=== PATIENT | female | born 1950 | race Caucasian/White ===

== ENCOUNTER 2019-03-05 09:57 | Observation (INO) ==
--- NOTE | 2019-03-05 11:09 | Emergency Department Note ---
Disposition Clinical Impression: Acute renal insufficiency UTI (urinary tract infection) Qualifiers: Urinary tract infection type: site unspecified Hematuria presence: without hematuria Qualified Code(s): N39.0 - Urinary tract infection, site not specified Syncope Qualifiers: Syncope type: unspecified Qualified Code(s): R55 - Syncope and collapse Disposition: Admitted As Inpatient Condition: Undetermined Time of Disposition: 22:25 Syncope HPI - General Chief Complaint: ED Syncope Stated Complaint: syncopal episode Time Seen by Provider: 03/05/19 10:34 Source: patient Limitations: no limitations - History of Present Illness HPI Narrative: 68-year-old female past medical history of stage III chronic kidney disease, hypertension, diabetes, asthma, congestive heart failure, 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 Thea agudelo states that today while folding laundry she felt lightheaded as she was bending over and fell forward onto a pile of laundry. Patient states she was able to get herself back up, she denies trauma during this event, patient walked down the stairs and told her son happened. Patient's son at bedside states that patient sat in her recliner and began drinking coffee when she "melted" out of the chair falling onto the floor and then experienced 3 minutes of generalized convulsions before slowly regaining consciousness after a groggy episode. Patient's son states that he is only seen this once before many years ago when he was a child that his mother has no known seizure history. Patient states that she has had presyncopal and syncopal episodes in the past as been worked up at this facility seeing Dr. Moore neurology and has had negative workup for seizure but has been diagnosed with orthostatic intolerance. Patient currently states that she feels "tight" in her facial muscles and that she has some worsening of her vision then she normally experiences at baseline. Patient is otherwise symptomatic and has no concerns or complaints at this time. - Related Data Home Medications Medication Instructions Recorded Confirmed Aspirin 81 mg PO DAILY 03/09/16 03/05/19 Carvedilol 12.5 mg PO BID 03/09/16 03/05/19 Citalopram [CeleXA] 20 mg PO DAILY 03/09/16 03/05/19 Insulin Glargine [Lantus] 68 - 70 unit SQ DAILY 03/09/16 03/05/19 Isosorbide MONOnitrate (24 HR) 30 mg PO DAILY 03/09/16 03/05/19 [Imdur] Albuterol Sulfate [Albuterol 1 puff IH Q4H PRN 08/02/16 03/05/19 Inhaler] Budesonide/Formoterol 80/4.5 1 puff IH BID 08/02/16 03/05/19 [Symbicort 80/4.5] Lovastatin 40 mg PO DAILY 08/02/16 08/02/16 Omeprazole Magnesium 20 mg PO DAILY 08/02/16 03/05/19 Tiotropium [Spiriva] 18 mcg IH DAILY 08/02/16 03/05/19 Allergies Allergy/AdvReac Type Severity Reaction Status Date / Time levofloxacin [From Levaquin] Allergy Hives Verified 03/05/19 10:03 lisinopril Allergy See Verified 03/05/19 10:03 Comments Penicillins Allergy See Verified 03/05/19 10:03 Comments Review of Systems: *See History of Present Illness for more detail Constitutional: Denies: fever, chills HEENT: Denies dysphagia/odynophagia, lymphadenopathy Cardiovascular: Denies: chest pain Respiratory: Denies: dyspnea, cough, hemoptysis Gastrointestinal: Denies: abdominal pain, nausea, vomiting, diarrhea, constipation, hematemesis, melena, hematochezia Genitourinary: Denies: hematuria Musculoskeletal: Denies: back pain, neck pain Integumentary: Denies: rash Neurological: Patient admits to "tightness" in her facial muscles as well as blurring of vision worse than her baseline. Denies: headache, weakness, lightheadedness/dizziness, numbness, paresthesias, difficulty with ambulation. Endocrine: Denies: fatigue Hematological/Lymphatic: Denies: easy bleeding, easy bruising Past Medical History - Past Medical History Medical history: Reports: asthma, CHF, diabetes, renal disease Surgical history: Reports: breast surgery, cataract, cholecystectomy, pacemaker Psychiatric history: Reports: no psych history PLATFORM STAPLER history: Reports: no PLATFORM STAPLER history - Social History Smoking Status: Never smoker Smokeless Tobacco Status: No Alcohol use: Reports: none Drug use: Reports: none Physical Exam NIH score is 0. Constitutional: No acute distress, [id number], engaged to conversation, speech is fluid, answers questions appropriately Neuro: GCS 15, CN II-XII are grossly intact, reflexes 2/4 in bilateral upper and lower extremities, strength 5/5 in bilateral upper and lower extremities Head: Atraumatic, normocephalic Eyes: Pupils equal, round and reactive to light, external ocular muscles intact, no scleral icterus, no conjunctival injection, no nystagmus. Mouth: Mucous membranes are moist, oropharynx is without edema, erythema, or exudate. No tongue swelling, lip swelling, perioral cyanosis, drooling, or trismus. Neck: Trachea midline without deviation. Anterior neck is supple without swelling, no lymphadenopathy or thyromegaly noted. Chest: Symmetric chest wall rise Heart: Cardiac rhythm and rate are regular with S1 and S2 , no S3 or S4 appreciated, no murmurs, rubs, or clicks. Lungs: Lungs are clear to auscultation bilaterally, without accessory muscle use or prolonged expiratory phase. No wheezes or stridor appreciated. Abdomen: Abdomen is flat, soft to palpation, normal bowel sounds, no evidence of bruising, surgical incisions, or abnormal mass. No abdominal bruit auscultated. Non-distended, non-rigid, no organomegaly, no ascites appreciated. No pulsatile mass, no tenderness or guarding to palpation, no rebound Extremities: No pedal edema, joint swelling or erythema. Pulses/motor/sensory intact in all 4 extremities. Psychiatric exam: Patient displays a normal affect and mood for the environment. No overt signs of hallucination. Integumentary: warm, dry, intact, normal color. No rash, cyanosis, diaphoresis, erythema, or pallor - General Limitations: no limitations General appearance: alert, in no apparent distress Course Course Narrative: CBC, CMP, TSH, troponin CT scan of the head, chest x-ray Urinalysis Vital Signs Temperature 98.3 F 03/05/19 10:01 Pulse Rate 78 03/05/19 10:01 Respiratory Rate 16 03/05/19 10:01 Blood Pressure 122/73 03/05/19 10:01 O2 Sat by Pulse Oximetry 98 03/05/19 10:01 Temperature 98.9 F 03/05/19 19:12 Pulse Rate 91 03/05/19 19:12 Respiratory Rate 16 03/05/19 20:19 Blood Pressure 127/70 03/05/19 19:12 O2 Sat by Pulse Oximetry 95 03/05/19 20:19 Oxygen Delivery Oxygen Delivery Room Air Syncope - MDM Narrative Medical decision making narrative: Laboratory results is significant for acute UTI 1 g of Rocephin given ED Imaging and laboratory results otherwise unremarkable Patiently admitted to hospitalist medicine service for further evaluation and management of syncopal episode with possible seizure activity. Patient and family at bedside verbalize their understanding and agreement with this plan. - Lab Data Lab results reviewed: Yes I reviewed the patient's lab results. Result diagrams: 03/05/19 11:38 03/05/19 11:38 Lab Results 03/05/19 03/05/19 03/05/19 Range/Units 10:08 11:08 11:38 WBC 14.0 H (4.3-11.1) K/mcL RBC 4.74 (3.82-4.97) M/mcL Hgb 11.6 (11.5-15.4) g/dL Hct 37.5 (35.3-44.9) % MCV 79.1 L (83.0-100.0) fL MCH 24.5 L (28.0-33.3) pg MCHC 30.9 L (31.6-35.5) g/dL RDW 14.4 (11.5-14.5) % Plt Count 289 (140-400) K/mcL MPV 11.1 (9.4-12.4) fL Immature Gran % 0.6 (0-4) % Seg Neutrophils % 71.0 % Lymphocytes % 19.1 % Monocytes % 6.6 % Eosinophils % 2.5 % Basophils % 0.2 % Neutrophils # 10.0 H (1.6-8.9) K/mcL Lymphocytes # 2.7 (0.6-4.6) K/mcL Monocytes # 0.9 (0.0-1.3) K/mcL Eosinophils # 0.4 (0.0-0.6) K/mcL Basophils # 0.0 (0.0-0.2) K/mcL Sodium (136-145) mEq/L Potassium (3.5-5.1) mEq/L Chloride (98-107) mEq/L Carbon Dioxide (23-29) mEq/L BUN (8-23) mg/dL Creatinine (0.60-1.20) mg/dL Est GFR ( Amer) (> 60) Est GFR (Non-Af Amer) (> 60) BUN/Creatinine Ratio (6-26) Glucose (70-105) mg/dL POC Glucose 179 H (70-99) mg/dL Calculated Osmolality (280-300) Calcium (8.6-10.3) mg/dL Total Bilirubin (0.3-1.0) mg/dL AST (13-39) Units/L ALT (7-52) Units/L Alkaline Phosphatase (34-104) Units/L Troponin I (< 0.04) ng/mL Serum Total Protein (6.4-8.9) g/dL Albumin (3.5-5.7) g/dL Globulin (2.4-3.5) g/dL Albumin/Globulin Ratio (1.1-2.2) TSH (0.340-5.600) mcIU/mL Urine Color Yellow (Yellow) Urine Clarity Slightly Hazy (Clear) Urine pH 6.5 (5.0-8.0) pH Units Ur Specific [place] < 1.005 L (1.010-1.025) Urine Protein Negative (Neg-Trace) mg/dL Urine Glucose (UA) Normal (Normal) mg/dL Urine Ketones Negative (Negative) mg/dL Urine Blood Negative (Negative) Urine Nitrite Negative (Negative) Urine Bilirubin Negative (Negative) Urine Urobilinogen Normal (Normal) mg/dL Ur Leukocyte Esterase Moderate H (Negative) Urine Microscopic RBC 0-3 (0-3) per hpf Urine Microscopic WBC 30-50 H (0-3) per hpf Ur Squamous Epith Cells Many H (None-Few) per lpf Urine Bacteria Moderate H (None-Few) per hpf Hyaline Casts None Seen (None-Few) per lpf Ur Culture Indicated? YES A (NO) 03/05/19 Range/Units 11:38 WBC (4.3-11.1) K/mcL RBC (3.82-4.97) M/mcL Hgb (11.5-15.4) g/dL Hct (35.3-44.9) % MCV (83.0-100.0) fL MCH (28.0-33.3) pg MCHC (31.6-35.5) g/dL RDW (11.5-14.5) % Plt Count (140-400) K/mcL MPV (9.4-12.4) fL Immature Gran % (0-4) % Seg Neutrophils % % Lymphocytes % % Monocytes % % Eosinophils % % Basophils % % Neutrophils # (1.6-8.9) K/mcL Lymphocytes # (0.6-4.6) K/mcL Monocytes # (0.0-1.3) K/mcL Eosinophils # (0.0-0.6) K/mcL Basophils # (0.0-0.2) K/mcL Sodium 134 L (136-145) mEq/L Potassium 4.5 (3.5-5.1) mEq/L Chloride 99 (98-107) mEq/L Carbon Dioxide 26 (23-29) mEq/L BUN 24 H (8-23) mg/dL Creatinine 1.36 H (0.60-1.20) mg/dL Est GFR ( Amer) 47 L (> 60) Est GFR (Non-Af Amer) 39 L (> 60) BUN/Creatinine Ratio 18 (6-26) Glucose 215 H (70-105) mg/dL POC Glucose (70-99) mg/dL Calculated Osmolality 289 (280-300) Calcium 9.3 (8.6-10.3) mg/dL Total Bilirubin 0.4 (0.3-1.0) mg/dL AST 17 (13-39) Units/L ALT 21 (7-52) Units/L Alkaline Phosphatase 141 H (34-104) Units/L Troponin I < 0.03 (< 0.04) ng/mL Serum Total Protein 7.0 (6.4-8.9) g/dL Albumin 3.8 (3.5-5.7) g/dL Globulin 3.2 (2.4-3.5) g/dL Albumin/Globulin Ratio 1.2 (1.1-2.2) TSH 2.950 (0.340-5.600) mcIU/mL Urine Color (Yellow) Urine Clarity (Clear) Urine pH (5.0-8.0) pH Units Ur Specific [place] (1.010-1.025) Urine Protein (Neg-Trace) mg/dL Urine Glucose (UA) (Normal) mg/dL Urine Ketones (Negative) mg/dL Urine Blood (Negative) Urine Nitrite (Negative) Urine Bilirubin (Negative) Urine Urobilinogen (Normal) mg/dL Ur Leukocyte Esterase (Negative) Urine Microscopic RBC (0-3) per hpf Urine Microscopic WBC (0-3) per hpf Ur Squamous Epith Cells (None-Few) per lpf Urine Bacteria (None-Few) per hpf Hyaline Casts (None-Few) per lpf Ur Culture Indicated? (NO) - Radiology Data Radiology results reviewed: Yes I reviewed the patient's radiology results. Head CT 03/05/19 10:58 IMPRESSION: No hemorrhage or mass identified Mild periventricular white matter disease, likely due to small-vessel ischemic change, similar to prior D/ / Juanpablo Méndez MD / Juanpablo Méndez MD Interpreting Provider: Juanpablo Méndez MD Chest X-Ray 03/05/19 11:00 IMPRESSION: No acute cardiopulmonary process. D/ / 03/05/2019 11:34:39 Stefan Delgado MD / Nori Xiong Interpreting Provider: Stefan Delgado MD Foot X-Ray 03/05/19 16:36 IMPRESSION: No acute findings D/ / Macrina De Souza MD / Macrina De Souza MD Interpreting Provider: Macrina De Souza MD Attestation Statement - Attestation Attestation: I, Juan Luis Wahl, examined this patient and my medical decision-making was reviewed with the CR[facility] PULLER/PA/Advanced Practice Nurse/Resident Physician. I agree with the documented findings, disposition and treatment plan as described except to the extent set forth below. 68-year-old female presents emergency Department with concerns of a syncopal episode. Patient and son state that she was sitting have a conversation when she suddenly became pale and syncopized. She has a history of this in the past but this is much more severe. Etiology in the past was considered to be dehydration. Patient denies recent trauma, nausea, vomiting, diarrhea, change in her diet. Patient is awake alert during the examination the emergency department. She denied chest pain or palpitations prior to the syncopal episode. She was sitting in a chair and did not sustain trauma. No drug evaluation showed acute renal insufficiency, possible urinary tract infection. She was started on ceftriaxone emergency department. She will be admitted to hospitalist for further care and evaluation of her syncopal episode.
[2019-03-05 11:25] LABS: Bilirubin,Urine Negative (Negative); Blood,Urine Negative (Negative); Color,Urine Yellow (Yellow); Glucose,Urine (UA) Normal (Normal); Ketones,Urine Negative (Negative); Leukocyte Esterase,Urine Moderate (Negative); Nitrite,Urine Negative (Negative); PH,Urine 6.5 pH Units (5.0-8.0); Protein,Urine Negative (Neg-Trace); Specific Gravity,Urine < 1.005 (1.010-1.025); Urobilinogen,Urine Normal (Normal)
[2019-03-05 11:30] LABS: Bacteria,Urine Moderate per hpf (None-Few); Hyaline Casts,Urine None Seen per lpf (None-Few); RBC,Urine 0-3 per hpf (0-3); Squamous Epithelial Cell,Urine Many per lpf (None-Few); WBC,Urine 30-50 per hpf (0-3)
[2019-03-05 11:50] LABS: Clarity,Urine Slightly Hazy (Clear)
[2019-03-05 12:02] LABS: Basophils % 0.2 %; Eosinophils # 0.4 K/mcL (0.0-0.6); Eosinophils % 2.5 %; Hematocrit 37.5 % (35.3-44.9); Hemoglobin 11.6 g/dL (11.5-15.4); Immature Granulocytes % 0.6 % (0-4); Lymphocytes # 2.7 K/mcL (0.6-4.6); Lymphocytes % 19.1 %; Mean Corpuscular HGB Conc 30.9 g/dL (31.6-35.5); Mean Corpuscular Hemoglobin 24.5 pg (28.0-33.3); Mean Corpuscular Volume 79.1 fL (83.0-100.0); Mean Platelet Volume 11.1 fL (9.4-12.4); Monocytes # 0.9 K/mcL (0.0-1.3); Monocytes % 6.6 %; Platelet Count 289 K/mcL (140-400); Red Blood Count 4.74 M/mcL (3.82-4.97); Red Cell Distribution Width 14.4 % (11.5-14.5)
[2019-03-05 12:10] LABS: Alanine Aminotransferase 21 Units/L (7-52); Albumin 3.8 g/dL (3.5-5.7); Albumin/Globulin Ratio 1.2 (1.1-2.2); Alkaline Phosphatase 141 Units/L (34-104); Aspartate Amino Transferase 17 Units/L (13-39); BUN/Creatinine Ratio 18 (6-26); Bilirubin,Total 0.4 mg/dL (0.3-1.0); Blood Urea Nitrogen 24 mg/dL (8-23); Calcium 9.3 mg/dL (8.6-10.3); Carbon Dioxide 26 mEq/L (23-29); Chloride 99 mEq/L (98-107); Globulin 3.2 g/dL (2.4-3.5); Glucose 215 mg/dL (70-105); Osmolality,Calculated 289 (280-300); Potassium 4.5 mEq/L (3.5-5.1); Sodium 134 mEq/L (136-145); eGFR For Non-African Americans 39 (> 60)
[2019-03-05 12:11] LABS: Troponin I < 0.03 ng/mL (< 0.04)
[2019-03-05] MEDS ORDERED: cefTRIAXone 1,000 MG in 0.9 % Sodium Chloride Mini Bag 100 ML IVPB ONE (12:52)
--- NOTE | 2019-03-05 16:30 | Internal Med History&Physical ---
Date of Encounter: 03/05/19 Time of Encounter: 16:00 Internal Medicine - H&P: HPI Chief complaint: Syncopal/seizure like activity Admitted From: Home Plans for Post Hospital Care: Home History of present illness: Patient is a 68-year-old female with past medical history significant for pacemaker placement in 2013, HFrEF, CKD stage III, insulin-dependent diabetes and COPD who presents due to syncopal/seizure like activities. She reports after getting up this morning she bent over and then lost her balance and fell over. Later that morning approximately one hour later, son reports that while in a chair her head fell back and eyes rolled to the back of her head with jerking-like movements of her face. Son reports that she was unresponsive for seconds and when she came to he decided to bring her to the ER. Patient reports similar episodes in the past apparently has been worked up by neurology (Dr. Moore) and diagnosed with orthostatic intolerance. In the ER, patient was found to have a CT of the head negative for acute findings. Patient was noted to have irregular paced ventricular rhythm. She will be admitted to the observation unit for further evaluation. Past Med Surg Social Fam HX - Past Medical History Medical history: asthma, CHF, diabetes, renal disease Additional medical history: angina, ANterior ischemic optic neuropathy, colonoscopy Psychiatric history: no psych history - Past Surgical History Surgical History: breast surgery, cataract, cholecystectomy, pacemaker Additional surgical history: cardiac cath, breast biopsy - Social History Smoking Status: Never smoker Smokeless Tobacco Status: No Alcohol use: none Drug use: none - Family History Mother Hx Family Cardiac Disorders: Yes Hx Family Cancer: Yes Father Hx Family Cardiac Disorders: Yes Hx Family Respiratory Disorders: Yes Internal Medicine - H&P: Meds Aspirin 81 mg PO DAILY 03/09/16 [History] Carvedilol 12.5 mg PO BID 03/09/16 [History] Citalopram [CeleXA] 20 mg PO DAILY 03/09/16 [History] Insulin Glargine [Lantus] 68 - 70 unit SQ DAILY 03/09/16 [History] Isosorbide MONOnitrate (24 HR) [Imdur] 30 mg PO DAILY 03/09/16 [History] Albuterol Sulfate [Albuterol Inhaler] 1 puff IH Q4H PRN 08/02/16 [History] Budesonide/Formoterol 80/4.5 [Symbicort 80/4.5] 1 puff IH BID 08/02/16 [History] Lovastatin 40 mg PO DAILY 08/02/16 [History] Omeprazole Magnesium 20 mg PO DAILY 08/02/16 [History] Tiotropium [Spiriva] 18 mcg IH DAILY 08/02/16 [History] Allergy/AdvReac Type Severity Reaction Status Date / Time levofloxacin [From Levaquin] Allergy Hives Verified 03/05/19 10:03 lisinopril Allergy See Verified 03/05/19 10:03 Comments Penicillins Allergy See Verified 03/05/19 10:03 Comments All Systems PM: A 10-system review of systems was performed and is negative for pertinent findings except as documented above in the HPI. - Constitutional Vitals: Temp Pulse Resp BP Pulse Ox 98.3 F 83 16 146/81 95 03/05/19 15:50 03/05/19 15:50 03/05/19 15:50 03/05/19 15:50 03/05/19 15:50 Exam: General appearance: Present: A&O X 3, no acute distress - Head Head exam: Present: normocephalic - Eye Eye exam: Present: normal appearance - ENT ENT exam: Present: mucous membranes moist - Respiratory Respiratory exam: Present: CTAB. Absent: accessory muscle use, rales, rhonchi, wheezes - Cardiovascular Cardiovascular exam: Present: RRR, +S1, +S2. Absent: diastolic murmur, gallop, rubs, systolic murmur - GI/Abdominal GI/Abdominal exam: Present: normal bowel sounds, soft, no peritoneal signs. Absent: distended, tenderness - Extremities Exam Extremities exam: Absent: pedal edema - Neurological Exam Neurological exam: Present: alert, oriented X3, no focal deficits. Absent: altered - Psychiatric Psychiatric exam: -normal mood Skin exam: -normal color Internal Med - H&P Results - Labs CBC & Chem 7: 03/05/19 11:38 03/05/19 11:38 Labs: Short CBC 03/05/19 Range/Units 11:38 WBC 14.0 H (4.3-11.1) K/mcL Hgb 11.6 (11.5-15.4) g/dL Hct 37.5 (35.3-44.9) % Plt Count 289 (140-400) K/mcL Neutrophils # 10.0 H (1.6-8.9) K/mcL BMP 03/05/19 11:38 Sodium 134 L Potassium 4.5 Chloride 99 Carbon Dioxide 26 BUN 24 H Creatinine 1.36 H Glucose 215 H Calcium 9.3 Cardiac Enzymes 03/05/19 Range/Units 11:38 Troponin I < 0.03 (< 0.04) ng/mL Liver Function 03/05/19 Range/Units 11:38 Total Bilirubin 0.4 (0.3-1.0) mg/dL AST 17 (13-39) Units/L ALT 21 (7-52) Units/L Alkaline Phosphatase 141 H (34-104) Units/L Albumin 3.8 (3.5-5.7) g/dL Urine 03/05/19 Range/Units 11:08 Urine Color Yellow (Yellow) Urine Clarity Slightly Hazy (Clear) Urine pH 6.5 (5.0-8.0) pH Units Ur Specific [place] < 1.005 L (1.010-1.025) Urine Protein Negative (Neg-Trace) mg/dL Urine Glucose (UA) Normal (Normal) mg/dL - Impressions ITS Impressions Head CT 03/05/19 10:58 IMPRESSION: No hemorrhage or mass identified Mild periventricular white matter disease, likely due to small-vessel ischemic change, similar to prior D/ / Juanpablo Méndez MD / Juanpablo Méndez MD Interpreting Provider: Juanpablo Méndez MD Chest X-Ray 03/05/19 11:00 IMPRESSION: No acute cardiopulmonary process. D/ / 03/05/2019 11:34:39 Stefan Delgado MD / Nori Xiong Interpreting Provider: Stefan Delgado MD - Assessment and Plan (1) Pre-syncope Current Visit: No Status: Acute Assessment and plan: Patient presents to nursing/seizure-like activities CT of the head negative for acute findings; will consult neurology for evaluation EKG did reveal abnormal pes particular rhythm; will consult cardiology for evaluation Echocardiogram and carotid Dopplers pending and will monitor on telemetry (2) Foot pain, left Current Visit: Yes Status: Acute Assessment and plan: She with good range of motion 5 out 5 strength on left/foot ankle exam Patient with point tenderness on the lateral aspect of the dorsal foot Will order x-ray for further evaluation (3) CHF (congestive heart failure) Current Visit: No Status: Chronic Assessment and plan: Patient with a previous documented history of heart failure with reduced ejection fraction Patient euvolemic Echocardiogram pending as above Qualifiers: Heart failure chronicity: unspecified Qualified Code(s): I50.20 - Unspecified systolic (congestive) heart failure (4) CKD (chronic kidney disease) stage 3, GFR 30-59 ml/min Current Visit: No Status: Chronic Assessment and plan: Creatinine 1.36 which is close to baseline Continue to monitor (5) Diabetes mellitus Current Visit: No Status: Chronic Assessment and plan: Continue home insulin Qualifiers: Qualified Code(s): E11.9 - Type 2 diabetes mellitus without complications; Z79.4 - care home (current) use of insulin (6) Hypertension Current Visit: No Status: Chronic Assessment and plan: Continue home dose of antihypertensive medication Qualifiers: Hypertension type: unspecified Qualified Code(s): I10 - Essential (primary) hypertension (7) DVT prophylaxis Current Visit: No Status: Acute Assessment and plan: Subcutaneous heparin - Time Spent With Patient Total time spent is greater than 50% in coordination of care (as documented) at patient's floor/unit and/or counseling patient:
[2019-03-05] MEDS ORDERED: Naloxone 0.4 MG/ML INJ IVP PRN (16:33)
[2019-03-05] MEDS: Budesonide/Formoterol 80/4.5 MDI IH SCH (20:19)
[2019-03-05] MEDS: *HR* Heparin 5,000 UNIT/ML VIAL SQ SCH (21:05)
[2019-03-06 03:38] LABS: Basophils % 0.3 %; Eosinophils # 0.4 K/mcL (0.0-0.6); Hematocrit 40.1 % (35.3-44.9); Hemoglobin 12.4 g/dL (11.5-15.4); Immature Granulocytes % 0.3 % (0-4); Lymphocytes # 4.5 K/mcL (0.6-4.6); Lymphocytes % 30.6 %; Mean Corpuscular HGB Conc 30.9 g/dL (31.6-35.5); Mean Corpuscular Hemoglobin 24.5 pg (28.0-33.3); Mean Corpuscular Volume 79.2 fL (83.0-100.0); Mean Platelet Volume 11.3 fL (9.4-12.4); Monocytes # 1.1 K/mcL (0.0-1.3); Monocytes % 7.3 %; Neutrophils # 8.5 K/mcL (1.6-8.9); Platelet Count 292 K/mcL (140-400); Red Blood Count 5.06 M/mcL (3.82-4.97); Red Cell Distribution Width 14.6 % (11.5-14.5); Segmented Neutrophils % 58.5 %
[2019-03-06 03:56] LABS: Calcium 9.3 mg/dL (8.6-10.3); Potassium 4.2 mEq/L (3.5-5.1)
[2019-03-06] MEDS: *HR* Heparin 5,000 UNIT/ML VIAL SQ SCH (05:34)
[2019-03-06] MEDS: Budesonide/Formoterol 80/4.5 MDI IH SCH (07:41)
[2019-03-06] MEDS ORDERED: Isosorbide MONOnitrate (24 HR) 30 MG TAB.ER.24H PO SCH (09:00)
[2019-03-06] MEDS ORDERED: Tiotropium 18 MCG inhalation IH SCH (09:00)
[2019-03-06] MEDS ORDERED: Insulin DETEMIR 100 UNIT/ML X5UNITS SQ SCH (09:00)
[2019-03-06] MEDS ORDERED: Aspirin 81 MG TAB.CHEW PO SCH (09:00)
--- NOTE | 2019-03-06 10:57 | Neurology - Consult Note ---
<Jovany Whitman J - Last Filed: 03/06/19 17:20> Date of Encounter: 03/06/19 Time of Encounter: 10:57 Assessment and Plan (1) Syncope Current Visit: Yes Status: Chronic Neuro consulted to evaluate for syncope and seizure-like activity Patient has a known history of vasovagal syncope with positive tilt table testing previously She reports attempting to stand yesterday and following over due to loss of balance. Denies any head or neck trauma Approximately 20 minutes later while drinking coffee began to feel very weak and reports seeing bright lights and then sudden loss of consciousness Duration of syncopal event lasted approximately 3 minutes; during this time experienced ""jerking of head and bilateral hands". Denies tongue biting or urinary incontinence. Denies postictal phase. No return of syncope or seizure- like activity since admission She reports a similar event 3 years ago occurring during the parade. Again, workup from the prior event did not find any seizure activity but did have a positive tilt table testing showing vasovagal syncope Of note, her UA indicates a UTI with moderate leukocyte esterase and pyuria. She also has mild leukocytosis on CBC. Neurological exam is nonfocal and nonlateralizing. No family present at this time to discuss seizure-like activity. However the patient reports that the "jerking" movement was limited to her head and bilateral hands. Given prior w/u negative for seizure I do not recommend adding AED'S at this time. However, I will get an EEG to evaluate for seizures. C/W PRN Ativan for breakthrough seizures, c/w seizure precautions. Syncope workup pending; this includes carotid duplex scans and echocardiogram. I recommend obtaining orthostatic vital signs as well. Prior workup including tilt table testing positive for vasovagal syncope. Given UTI diagnosis her threshold for a syncopal event is likely lower and I believed that the "jerking" activity is convulsive syncope. Qualifiers: Syncope type: vasovagal syncope Qualified Code(s): R55 - Syncope and collapse (2) Seizure-like activity Current Visit: Yes Status: Acute History of Present Illness Chief complaint: Syncope and concern for seizure-like activity HPI: Ms. Sood is a 68 year old female with a PMH of heart failure, pacemaker, CKD 3, DM, COPD and prior history of syncope approximately 3 years ago. She reports that yesterday while bending over she fell a polyp pillows due to losing her balance. She denies any loss of consciousness just reports that she was unable to retain her balance and "just fell over ". Shortly after this event, approximately 20 minutes later while sitting at the breakfast table having coffee with her son she reports feeling suddenly weak, seeing white spots in her vision and having a full loss of consciousness with her eyes rolling back in her head. She reports that her son noted jerking of her head and bilateral hands. She notes that the jerking did not extend into her arms or legs, she denies any tongue bite, urinary incontinence or postictal phase. In total the syncopal event lasted approximately 2-3 minutes. She has been worked up for sy ncope in the past with a positive tilt table test diagnosing orthostatic hypotension secondary to vasovagal phenomena. a urinary tract infection was found on admission along with leukocytosis. A CT of the head was unremarkable for acute ischemic changes. since admission she has not had any return of syncopal or seizure like activity. Neurology will follow and consult for syncope and seizure-like activity. Past Med Surg Social Fam HX - Past Medical History Medical history: asthma, CHF, diabetes, renal disease Additional medical history: angina, ANterior ischemic optic neuropathy, colonoscopy Psychiatric history: no psych history - Past Surgical History Surgical History: breast surgery, cataract, cholecystectomy, pacemaker Additional surgical history: cardiac cath, breast biopsy - Social History Smoking Status: Never smoker Smokeless Tobacco Status: No Alcohol use: none Drug use: none - Family History Mother Hx Family Cardiac Disorders: Yes Hx Family Cancer: Yes Father Hx Family Cardiac Disorders: Yes Hx Family Respiratory Disorders: Yes Medications and Allergies Aspirin 81 mg PO DAILY 03/09/16 [History] Carvedilol 12.5 mg PO BID 03/09/16 [History] Citalopram [CeleXA] 20 mg PO DAILY 03/09/16 [History] Insulin Glargine [Lantus] 68 - 70 unit SQ DAILY 03/09/16 [History] Isosorbide MONOnitrate (24 HR) [Imdur] 30 mg PO DAILY 03/09/16 [History] Albuterol Sulfate [Albuterol Inhaler] 1 puff IH Q4H PRN 08/02/16 [History] Budesonide/Formoterol 80/4.5 [Symbicort 80/4.5] 1 puff IH BID 08/02/16 [History] Lovastatin 40 mg PO DAILY 08/02/16 [History] Omeprazole Magnesium 20 mg PO DAILY 08/02/16 [History] Tiotropium [Spiriva] 18 mcg IH DAILY 08/02/16 [History] Cephalexin [Keflex] 500 mg PO TID #15 capsule 03/06/19 [Rx] Allergy/AdvReac Type Severity Reaction Status Date / Time levofloxacin [From Levaquin] Allergy Hives Verified 03/05/19 10:03 lisinopril Allergy See Verified 03/05/19 10:03 Comments Penicillins Allergy See Verified 03/05/19 10:03 Comments All Systems: The remainder of the systems were reviewed and are negative Review of Systems: REVIEW OF SYSTEMS GENERAL: Negative for any nausea, vomiting, fevers, chills, or weight loss, fatigue NEUROLOGIC: Negative for any blurry vision, blind spots, double vision, facial asymmetry, dysphagia, dysarthria, hemiparesis, hemisensory deficits, vertigo, ataxia, paralysis, tingling, numbness, unilateral weakness or numbness/tingling Positive-"shaking activity of head and hands " occurred after syncopal event HEENT: Negative for any head trauma, neck trauma, neck stiffness, photophobia, phonophobia, tinnitus CARDIAC: Negative for any chest pain, dyspnea, peripheral edema palpitations Physical Examination - Vital Signs Vital Signs: Initial Vital Signs Temp Pulse Resp BP Pulse Ox 98.3 F 78 16 122/73 98 03/05/19 10:01 03/05/19 10:01 03/05/19 10:01 03/05/19 10:01 03/05/19 10:01 - Exam Exam: Examination: General Examination: *CONSTITUTIONAL: Alert and oriented x3, no acute distress *GENERAL APPEARANCE OF PATIENT appears healthy and well groomed *EYES: pupils equal, round, reactive to light and accommodation, conjunctiva clear without masses or ulcerations, fundi normal. *CARDIOVASCULAR RRR, S1, S2, no peripheral edema, distal temperature normal, dorsalis pedis pulses normal. See vitals Musculoskeletal: *GAIT AND STATION normal, with normal Romberg testing, no abnormalities such as broad base gait or spasticity *ASSESSMENT OF MUSCLE STRENGTH IN THE UPPER AND LOWER EXTREMITIES bilateral deltoid, bicep, tricep, seam hammerer strength, hip flexors ,anterior tibialis, dorsoflexion of the foot 5/5 *MUSCLE TONE IN THE UPPER AND LOWER EXTREMITIES normal. No abnormal movements, fasciculations or atrophy identified. Neurological: *ORIENTATION to person, situation, time and place *RECURRENT AND REMOTE MEMORY intact *ATTENTION AND CONCENTRATION are normal *LANGUAGE FUNCTION no significant aphasia or dysarthia was noted. *FUND OF KNOWLEDGE aware of current events, past history, vocabulary *MENTAL attention span and concentration normal. *CN II optic fundi were normal, no papilledema noted. *CN III,IV, PERRLA extraocular eye movements were full, no nystagmus and no ptosis noted. *CN V shows normal sensation and jaw opens symmetrically. *CN VII shows normal facial movement symmetrically, upper and lower bilaterally. *CN VIII shows no significant hearing loss on exam *CN IX,,X palate elevated symmetrically *CN XI normal strength in the sternocleidomastoid muscles, symmetrical shoulder shrugging. *CN XII tongue protruded in the midline, with normal strength and movement. *SENSORY EXAMINATION light touch intact *REFLEXES: deep tendon reflexes were normal and symmetrical , grade 2/4 diffusely, no pathological reflexes were noted. *CEREBELLAR TESTING normal finger to nose, heel/knee/diego *PAIN LEVEL 0/10 Results - Laboratory Findings CBC and BMP: 03/06/19 02:47 03/06/19 02:47 Abnormal lab findings: Abnormal lab results WBC 14.6 K/mcL (4.3-11.1) H 03/06/19 02:47 RBC 5.06 M/mcL (3.82-4.97) H 03/06/19 02:47 MCV 79.2 fL (83.0-100.0) L 03/06/19 02:47 MCH 24.5 pg (28.0-33.3) L 03/06/19 02:47 MCHC 30.9 g/dL (31.6-35.5) L 03/06/19 02:47 RDW 14.6 % (11.5-14.5) H 03/06/19 02:47 10.0 K/mcL (1.6-8.9) H 03/05/19 11:38 Sodium 135 mEq/L (136-145) L 03/06/19 02:47 BUN 24 mg/dL (8-23) H 03/05/19 11:38 1.40 mg/dL (0.60-1.20) H 03/06/19 02:47 Est GFR ( Amer) 45 (> 60) L 03/06/19 02:47 Est GFR (Non-Af Amer) 38 (> 60) L 03/06/19 02:47 Glucose 196 mg/dL (70-105) H 03/06/19 02:47 POC Glucose 193 mg/dL (70-99) H 03/05/19 20:13 141 Units/L (34-104) H 03/05/19 11:38 Ur Specific [place] < 1.005 (1.010-1.025) L 03/05/19 11:08 Ur Leukocyte Esterase Moderate (Negative) H 03/05/19 11:08 30-50 per hpf (0-3) H 03/05/19 11:08 Ur Squamous Epith Cells Many per lpf (None-Few) H 03/05/19 11:08 Moderate per hpf (None-Few) H 03/05/19 11:08 Ur Culture Indicated? YES (NO) A 03/05/19 11:08 - Diagnostic Findings Additional findings: CT/CT head/brain wo con IMPRESSION: No hemorrhage or mass identified Mild periventricular white matter disease, likely due to small-vessel ischemic change, similar to prior Consult Discharge Plan - Plan Instructions: Cephalexin (By mouth), Urinary Tract Infection in Women (DC), Syncope (DC) Referrals: Mark Harvey, DPM [Partnered Physician] - (We have requestes a follow up appointment with [facility]. The office will call you at home with an appointment date and time. ) Nae Garcia MD [Primary Care Provider] - 03/15/19 10:20 am Prescriptions: Cephalexin [Keflex] 500 mg PO TID #15 capsule <Jagjit Moore - Last Filed: 03/06/19 17:31> Date of Encounter: 03/06/19 Assessment and Plan (1) Syncope Current Visit: Yes Status: Chronic I have personally performed a [id number] assessment of the patient and have reviewed the PA/BUILDING ANALYST/SUPERVISOR note. My impressions are as follows: I agree with the assessment and plan as stated above. Patient is now back to her normal baseline neurologic status. Neurologic workup was negative. EEG was normal CT imaging of the brain was normal logic exam was normal. I agree that very likely this event was associated with her acute UTI. We will reevaluate her at your discretion. Qualifiers: Syncope type: vasovagal syncope Qualified Code(s): R55 - Syncope and collapse (2) Seizure-like activity Current Visit: Yes Status: Acute History of Present Illness HPI: Chart was reviewed, the patient was seen and examined independently. Case was discussed with the CMP. I agree with his assessment of the history of present illness as documented above. Patient now seems to be back to her normal baseline. She was found to have a UTI upon admission. Her EEG was negative CT scan of the head was negative as well. All Systems: The remainder of the systems were reviewed and are negative Review of Systems: Balance of the systems review is negative. Physical Examination - Vital Signs Vital Signs: Initial Vital Signs Temp Pulse Resp BP Pulse Ox 98.3 F 78 16 122/73 98 03/05/19 10:01 03/05/19 10:01 03/05/19 10:01 03/05/19 10:01 03/05/19 10:01 - Exam Exam: I have personally performed a [id number] assessment of the patient and have reviewed the PA/BUILDING ANALYST/SUPERVISOR note. My impressions are as follows: Results - Laboratory Findings CBC and BMP: 03/06/19 02:47 03/06/19 02:47 Abnormal lab findings: Abnormal lab results WBC 14.6 K/mcL (4.3-11.1) H 03/06/19 02:47 RBC 5.06 M/mcL (3.82-4.97) H 03/06/19 02:47 MCV 79.2 fL (83.0-100.0) L 03/06/19 02:47 MCH 24.5 pg (28.0-33.3) L 03/06/19 02:47 MCHC 30.9 g/dL (31.6-35.5) L 03/06/19 02:47 RDW 14.6 % (11.5-14.5) H 03/06/19 02:47 10.0 K/mcL (1.6-8.9) H 03/05/19 11:38 Sodium 135 mEq/L (136-145) L 03/06/19 02:47 BUN 24 mg/dL (8-23) H 03/05/19 11:38 1.40 mg/dL (0.60-1.20) H 03/06/19 02:47 Est GFR ( Amer) 45 (> 60) L 03/06/19 02:47 Est GFR (Non-Af Amer) 38 (> 60) L 03/06/19 02:47 Glucose 196 mg/dL (70-105) H 03/06/19 02:47 POC Glucose 340 mg/dL (70-99) H 03/06/19 15:12 141 Units/L (34-104) H 03/05/19 11:38 Ur Specific [place] < 1.005 (1.010-1.025) L 03/05/19 11:08 Ur Leukocyte Esterase Moderate (Negative) H 03/05/19 11:08 30-50 per hpf (0-3) H 03/05/19 11:08 Ur Squamous Epith Cells Many per lpf (None-Few) H 03/05/19 11:08 Moderate per hpf (None-Few) H 03/05/19 11:08 Ur Culture Indicated? YES (NO) A 03/05/19 11:08
--- NOTE | 2019-03-06 13:02 | Podiatry Consult Note ---
Date of Encounter: 03/06/19 Time of Encounter: 12:50 Assessment and Plan (1) Foot pain, left Status: Acute ASSESSEMENT: Probable left ankle sprain s/p syncopal event Patient reports lateral left ankle pain s/p syncopal event. Reports she can not walk on ankle. Xray negative for any acute osseous abnormality At this time will place ANA CRISTINA wrap for compression and apply left CAM walker Patient to wear with any ambulation for protection and stability of ankle Will follow up in outpatient office for further evaluation- patient needs appointment with on an outpatient basis following discharge in 2-3 weeks If needed will CT scan on outpatient basis if pain continues No clinical signs of infection or weakness on ROM. No indication of acute tear. History of Present Illness HPI: Ms. Sood is a 68 year old female with a past medical history significant for pacemaker placement in 2013, HFrEF, CKD stage III, insulin-dependent diabetes and COPD who presented to the ED due to syncopal/seizure like activities. Patient has been consulted to podiatry regarding reported left ankle pain following event. Reports she is unsure if she twisted the ankle. reports it hurts along the lateral aspect of her ankle when she moves the ankle in and out. Reports she has been able to place weight to the ankle this morning. Reports mild weakness. Reports pain with ambulation but reports it is tolerable. No dressing in place. Patient resting in bed. no acute distress. no fevers, chills, n/v or fls. No calf pain or sob. Past Med Surg Social Fam HX - Past Medical History Medical history: asthma, CHF, diabetes, renal disease Additional medical history: angina, ANterior ischemic optic neuropathy, colonoscopy Psychiatric history: no psych history - Past Surgical History Surgical History: breast surgery, cataract, cholecystectomy, pacemaker Additional surgical history: cardiac cath, breast biopsy - Social History Smoking Status: Never smoker Smokeless Tobacco Status: No Alcohol use: none Drug use: none - Family History Mother Hx Family Cardiac Disorders: Yes Hx Family Cancer: Yes Father Hx Family Cardiac Disorders: Yes Hx Family Respiratory Disorders: Yes Medications and Allergies Aspirin 81 mg PO DAILY 03/09/16 [History] Carvedilol 12.5 mg PO BID 03/09/16 [History] Citalopram [CeleXA] 20 mg PO DAILY 03/09/16 [History] Insulin Glargine [Lantus] 68 - 70 unit SQ DAILY 03/09/16 [History] Isosorbide MONOnitrate (24 HR) [Imdur] 30 mg PO DAILY 03/09/16 [History] Albuterol Sulfate [Albuterol Inhaler] 1 puff IH Q4H PRN 08/02/16 [History] Budesonide/Formoterol 80/4.5 [Symbicort 80/4.5] 1 puff IH BID 08/02/16 [History] Lovastatin 40 mg PO DAILY 08/02/16 [History] Omeprazole Magnesium 20 mg PO DAILY 08/02/16 [History] Tiotropium [Spiriva] 18 mcg IH DAILY 08/02/16 [History] Cephalexin [Keflex] 500 mg PO TID #15 capsule 03/06/19 [Rx] Allergy/AdvReac Type Severity Reaction Status Date / Time levofloxacin [From Levaquin] Allergy Hives Verified 03/05/19 10:03 lisinopril Allergy See Verified 03/05/19 10:03 Comments Penicillins Allergy See Verified 03/05/19 10:03 Comments All Systems Reviewed: The remainder of the systems were reviewed and are negative Physical Exam - Constitutional Vitals: Temp Pulse Resp BP Pulse Ox 98.0 F 94 16 137/73 94 03/06/19 12:48 03/06/19 12:40 03/06/19 12:48 03/06/19 12:40 03/06/19 12:48 Exam: General Examination: CONSTITUTIONAL: Alert, awake, oriented and non toxic EXTREMITIES: CFT 3 seconds all toes. Edema +1 and pedal pulses palpable. SKIN: Skin with decreased turgor, decreased subcutaneous tissue, skin thin and shiny with trophic changes associated with comorbidities as described in history.. NEUROLOGIC: Intact sensation to light and moderate touch. MUSCULOSKELETAL: Assessment of left ankle complete. Muscle strength 5/5. ROM intact. reports mild pain with eversion and inversion against resistance. Anterior drawer sign negative. dorsal and plantar flexion intact and without pain. No pops or cracks noted. No ecchymosis. no edema or warmth. There is a very small area of inflammation to the dorsal aspect of the left foot, midfoot. Non specific. not fluctuant. Spongy to palpation. No warmth. Movement of all toes is intact. Free from pain with palpation of the ankle joint. Free ROM. Results - Labs Result Diagrams: 03/06/19 02:47 03/06/19 02:47 Labs: Abnormal lab results WBC 14.6 K/mcL (4.3-11.1) H 03/06/19 02:47 RBC 5.06 M/mcL (3.82-4.97) H 03/06/19 02:47 MCV 79.2 fL (83.0-100.0) L 03/06/19 02:47 MCH 24.5 pg (28.0-33.3) L 03/06/19 02:47 MCHC 30.9 g/dL (31.6-35.5) L 03/06/19 02:47 RDW 14.6 % (11.5-14.5) H 03/06/19 02:47 10.0 K/mcL (1.6-8.9) H 03/05/19 11:38 Sodium 135 mEq/L (136-145) L 03/06/19 02:47 BUN 24 mg/dL (8-23) H 03/05/19 11:38 1.40 mg/dL (0.60-1.20) H 03/06/19 02:47 Est GFR ( Amer) 45 (> 60) L 03/06/19 02:47 Est GFR (Non-Af Amer) 38 (> 60) L 03/06/19 02:47 Glucose 196 mg/dL (70-105) H 03/06/19 02:47 POC Glucose 193 mg/dL (70-99) H 03/05/19 20:13 141 Units/L (34-104) H 03/05/19 11:38 Ur Specific [place] < 1.005 (1.010-1.025) L 03/05/19 11:08 Ur Leukocyte Esterase Moderate (Negative) H 03/05/19 11:08 30-50 per hpf (0-3) H 03/05/19 11:08 Ur Squamous Epith Cells Many per lpf (None-Few) H 03/05/19 11:08 Moderate per hpf (None-Few) H 03/05/19 11:08 Ur Culture Indicated? YES (NO) A 03/05/19 11:08 H & H 03/06/19 Range/Units 02:47 Hgb 12.4 (11.5-15.4) g/dL Hct 40.1 (35.3-44.9) % All other labs normal. Consult Discharge Plan - Plan Instructions: Cephalexin (By mouth), Urinary Tract Infection in Women (DC), Syncope (DC) Referrals: Mark Harvey, KAYLIM [Partnered Physician] - (We have requestes a follow up appointment with [facility]. The office will call you at home with an appointment date and time. ) Nae Garcia MD [Primary Care Provider] - 03/15/19 10:20 am Prescriptions: Cephalexin [Keflex] 500 mg PO TID #15 capsule
--- NOTE | 2019-03-06 13:05 | Cardiology Consult Note ---
Date of Encounter: 03/06/19 Time of Encounter: 11:30 Assessment and Plan (1) Syncope Current Visit: Yes Status: Chronic Per cardiology: -Known history of vasovagal syncope. -Positive tilt table test 04/2016. -Recent GI illness. UTI noted. -KENNETH noted. -TTE pending. -Device checked and no events noted from last transmission on 02/27/19. No arrythmias noted at time of syncopal event. -Suspect syncope related to dehydration. -Further recs pending TTE. Qualifiers: Syncope type: vasovagal syncope Qualified Code(s): R55 - Syncope and collapse (2) NICM (nonischemic cardiomyopathy) Current Visit: Yes Status: Acute Per cardiology: -Known NICM. -Last TTE 2013 with LVEF 35%. -LHC 2004 with normal coronaries. -On BB. NOt on reji inhibitor due to allergy. NOt on ARB currently due to KENNETH. -Euvolemic on exam. -TTE pending. -Continue BB. Consider re-addition of ARB pending renal function and BP prior to discharge. (3) Abnormal ECG Current Visit: Yes Status: Acute Per cardiology: -ECG with diffuse T wave inversions. -Troponin negative x2. -Denies chest pain. -TTE pending. -Further recs pending TTE. Discussion w patient/family: The assessment and plan as outlined above was discussed with the patient who expressed understanding and agreement. All questions were answered. Thank you for involving us in the care of your patient. Please call with any questions. Discussed and reviewed with . History of Present Illness Consult date: 03/05/19 Requesting physician: Demarcus Wade Consult reason: syncope, ECG changes noted Chief complaint: syncope History of present illness: Ms. Sood is a 68 year old female with a relevant past medical history of DM, NICM s/p AICD placement, vasodepressors syncope, who presented to [facility] with complaints of syncope. Patient states she was sitting in her chair when she became dizzy and lightheaded. Patient states next thing she remembers, she was on the ground. Patient's son was witness to her event and told patient she was out for a few minutes. Per patient, son also stated involuntary eye movements. Patient reports she had recent GI illness in the beginning of February and then had recurrence. States she had nausea, vomiting, diarrhea, and inability to keep anything down. Reports has been dizzy and lightheaded since GI illness. Denies chest pain. Denies shortness of breath. Past Med Surg Social Fam HX - Past Medical History Attestation: Yes The following information was validated with the patient. Source: patient, old records reviewed Medical history: asthma, cardiomyopathy, CHF, diabetes, renal disease Additional medical history: angina, ANterior ischemic optic neuropathy, colonoscopy Psychiatric history: no psych history - Past Surgical History Surgical History: breast surgery, cataract, cholecystectomy, pacemaker Additional surgical history: cardiac cath, breast biopsy - Social History Smoking Status: Never smoker Smokeless Tobacco Status: No Alcohol use: none Drug use: none - Family History Mother Hx Family Cardiac Disorders: Yes Hx Family Cancer: Yes Father Hx Family Cardiac Disorders: Yes Hx Family Respiratory Disorders: Yes Medications and Allergies Aspirin 81 mg PO DAILY 03/09/16 [History] Carvedilol 12.5 mg PO BID 03/09/16 [History] Citalopram [CeleXA] 20 mg PO DAILY 03/09/16 [History] Insulin Glargine [Lantus] 68 - 70 unit SQ DAILY 03/09/16 [History] Isosorbide MONOnitrate (24 HR) [Imdur] 30 mg PO DAILY 03/09/16 [History] Albuterol Sulfate [Albuterol Inhaler] 1 puff IH Q4H PRN 08/02/16 [History] Budesonide/Formoterol 80/4.5 [Symbicort 80/4.5] 1 puff IH BID 08/02/16 [History] Lovastatin 40 mg PO DAILY 08/02/16 [History] Omeprazole Magnesium 20 mg PO DAILY 08/02/16 [History] Tiotropium [Spiriva] 18 mcg IH DAILY 08/02/16 [History] Allergy/AdvReac Type Severity Reaction Status Date / Time levofloxacin [From Levaquin] Allergy Hives Verified 03/05/19 10:03 lisinopril Allergy See Verified 03/05/19 10:03 Comments Penicillins Allergy See Verified 03/05/19 10:03 Comments All Systems Review: The remainder of the systems were reviewed and are negative - Cardiovascular Cardiovascular: as per HPI, lightheadedness - Neurological Neurological: dizziness, syncope Physical Examination Vital Signs, Last 4 Hours Temp Pulse Pulse Pulse Resp BP BP 05/28/19 12:48 98.0 F 16 03/06/19 12:40 94 86 97 137/73 134/78 BP Pulse Ox 03/06/19 12:48 94 03/06/19 12:40 121/73 General: Conversant, No Apparent Distress HEENT: Atraumatic, Normocephaly, Mucus Membranes Moist Neck: No JVD, Normal carotid pulses Cardiac: Reg Rate and Rhythm, Normal S1 and S2, No Murmur Lungs: Normal Breath Sounds, No Wheeze, Rales, Rhonchi Neuro: Alert and responsive, No focal deficits noted Abdomen: Soft, Non-Tender Skin: No rashes noted on visualized skin Musculoskeletal: No Chest Wall Tenderness Extremities: No Clubbing, No Cyanosis, No Edema, Normal Pulses Results 03/06/19 02:47 03/06/19 02:47 Lab Results Impressions Foot X-Ray 03/05/19 16:36 IMPRESSION: No acute findings D/ / Macrina De Souza MD / Macrina De Souza MD Interpreting Provider: Macrina De Souza MD Active Medications Albuterol Sulfate (Albuterol Inhaler) 1 puff IH [id number] PRN PRN Reason: Shortness Of Breath Stop: 09/04/19 16:39 Aspirin (Aspirin) 81 mg PO DAILY [facility] Stop: 09/05/19 09:01 Last Admin: 03/06/19 08:35 Dose: 81 mg Documented by: Budesonide/Formoterol Fumarate (Symbicort) 1 puff IH BIDR [facility]; Protocol Stop: 09/04/19 22:01 Last Admin: 03/06/19 07:41 Dose: 1 puff Documented by: Carvedilol (Coreg) 12.5 mg PO BIDWM [facility] Stop: 09/04/19 21:01 Last Admin: 03/06/19 08:35 Dose: 12.5 mg Documented by: Citalopram Hydrobromide (Celexa) 20 mg PO DAILY [facility] Stop: 09/05/19 09:01 Last Admin: 03/06/19 08:35 Dose: 20 mg Documented by: Heparin Sodium (Porcine) (Heparin) 5,000 unit SQ Q12HCO [facility] Stop: 09/04/19 18:01 Last Admin: 03/06/19 05:34 Dose: 5,000 unit Documented by: Insulin Detemir (Levemir) 70 unit SQ DAILY [facility] Stop: 09/05/19 09:01 Last Admin: 03/06/19 08:35 Dose: 70 unit Documented by: Isosorbide Mononitrate (Imdur) 30 mg PO DAILY [facility] Stop: 09/05/19 09:01 Last Admin: 03/06/19 08:35 Dose: 30 mg Documented by: Naloxone HCl (Narcan) 0.4 mg IVP Q2MPRN PRN PRN Reason: SEE COMMENTS Stop: 09/04/19 16:34 Omeprazole (Prilosec) 20 mg PO DAILY [facility] Stop: 09/05/19 09:01 Last Admin: 03/06/19 08:35 Dose: 20 mg Documented by: Tiotropium [place] (Spiriva) 18 mcg IH DAILY [facility] Stop: 09/05/19 09:01 Last Admin: 03/06/19 07:42 Dose: 18 mcg Documented by: Laboratory Tests 09/21/18 03/05/19 03/06/19 16:08 11:38 02:47 WBC 14.6 H Hgb 12.4 Creatinine 1.20 Troponin I < 0.03 03/06/19 03/06/19 02:47 12:12 WBC Hgb Creatinine 1.40 H Troponin I < 0.03 - Imaging and Cardiology Chest Xray: report reviewed Echo: pending, report reviewed - EKG Interpretation EKG results cardiology: personally reviewed (ECG with paced rhythm, diffuse T wave inversions noted.), other (Telemetry reviewed with average HR previous 12 hours noted to be 81, paced rhythm.) Consult Discharge Plan - Plan Referrals: Nae Garcia MD [Primary Care Provider] -
[2019-03-06 15:14] VITALS: BP 118/57
--- NOTE | 2019-03-06 15:21 | Discharge Summary ---
- NOTES TO OUTPATIENT PROVIDER Notes to Outpatient Provider: f/u with PCP in one week. f/u with [facility] in 1-2 weeks for your Left ankle pain Orders not resulted at time of discharge: Pending orders 03/05/19 12:52 Culture,Urine [RM] Stat Date of Encounter: 03/06/19 Time of Encounter: 15:20 - Discharge Diagnosis (1) Pre-syncope Priority: Primary Status: Acute (2) Foot pain, left Priority: Primary Status: Acute (3) UTI (urinary tract infection) Priority: Secondary Status: Acute Qualifiers: Urinary tract infection type: acute cystitis Hematuria presence: without hematuria Qualified Code(s): N30.00 - Acute cystitis without hematuria (4) CKD (chronic kidney disease) stage 3, GFR 30-59 ml/min Priority: Secondary Status: Chronic (5) Hypertension Priority: Secondary Status: Chronic Qualifiers: Hypertension type: unspecified Qualified Code(s): I10 - Essential (primary) hypertension (6) Diabetes mellitus Priority: Secondary Status: Chronic Qualifiers: Qualified Code(s): E11.9 - Type 2 diabetes mellitus without complications; Z79.4 - intermediate (current) use of insulin (7) CHF (congestive heart failure) Priority: Secondary Status: Chronic Qualifiers: Heart failure type: diastolic Heart failure chronicity: chronic Qualified Code(s): I50.32 - Chronic diastolic (congestive) heart failure (8) DVT prophylaxis Priority: Secondary Status: Acute Hospital course: Ms. Sood is a 68 year old female with past medical history significant for pacemaker placement in 2013, HFrEF, CKD stage III, insulin-dependent diabetes and COPD who presented to ER due to syncope. She reported after getting up from bed, she bent over and then lost her balance and fell over. Later that morning approximately one hour later, son reported that while she was sitting in a chair her head fell back and eyes rolled to the back of her head with jerking-like movements of her face. Son reports that she was unresponsive for seconds. Patient reports similar episodes in the past apparently has been worked up by neurology (Dr. Moore) and diagnosed with orthostatic intolerance. In the ER, patient was found to have a CT of the head negative for acute findings. She was admitted in the hospital and placed her on tele. Her serial trop were negative. Her carotid doppler showed non stenotic plaques b/l. Her 2D Echo showed preserved LVEF @ 60% now and mild diastolic dysfunction. She also c/o Left foot pain mostly due to sprain. Her foot X ray did not show any fx. 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 She does have UTI , urine cx grew GBS which might triggered her current syncope event. So will d/c her home with PO Abx Keflex. - Time Spent with Patient Total time spent providing and/or coordinating discharge services: - Discharge Medications Prescriptions: No Action Isosorbide MONOnitrate (24 HR) [Imdur] 30 mg PO DAILY Citalopram [CeleXA] 20 mg PO DAILY Aspirin 81 mg PO DAILY Insulin Glargine [Lantus] 68 - 70 unit SQ DAILY Carvedilol 12.5 mg PO BID Tiotropium [Spiriva] 18 mcg IH DAILY Omeprazole Magnesium 20 mg PO DAILY Lovastatin 40 mg PO DAILY Budesonide/Formoterol 80/4.5 [Symbicort 80/4.5] 1 puff IH BID Albuterol Sulfate [Albuterol Inhaler] 1 puff IH Q4H PRN PRN Reason: Shortness Of Breath Home Medications: Aspirin 81 mg PO DAILY 03/09/16 [History] Carvedilol 12.5 mg PO BID 03/09/16 [History] Citalopram [CeleXA] 20 mg PO DAILY 03/09/16 [History] Insulin Glargine [Lantus] 68 - 70 unit SQ DAILY 03/09/16 [History] Isosorbide MONOnitrate (24 HR) [Imdur] 30 mg PO DAILY 03/09/16 [History] Albuterol Sulfate [Albuterol Inhaler] 1 puff IH Q4H PRN 08/02/16 [History] Budesonide/Formoterol 80/4.5 [Symbicort 80/4.5] 1 puff IH BID 08/02/16 [History] Lovastatin 40 mg PO DAILY 08/02/16 [History] Omeprazole Magnesium 20 mg PO DAILY 08/02/16 [History] Tiotropium [Spiriva] 18 mcg IH DAILY 08/02/16 [History] Cephalexin [Keflex] 500 mg PO TID #15 capsule 03/06/19 [Rx] Allergies/Adverse Reactions: Allergy/AdvReac Type Severity Reaction Status Date / Time levofloxacin [From Levaquin] Allergy Hives Verified 03/05/19 10:03 lisinopril Allergy See Verified 03/05/19 10:03 Comments Penicillins Allergy See Verified 03/05/19 10:03 Comments Date of admission: 03/05/19 13:39 Primary care physician: Nae Garcia MD Consults: 03/05/19 16:31 Consult to Cardiology [CONS] Routine Comment: Consulting Provider: [facility] [place] Reason for Consult: Abnormal paced ventricular rhythm with syncope Call Completed: No 03/05/19 16:32 Consult to Neurology [CONS] Routine Consulting Provider: [facility] Reason for Consult: Syncopal/seizure-like activities Call Completed: No 03/06/19 10:07 Consult to Podiatry [CONS] Routine Consulting Provider: [facility] Reason for Consult: Ankle sprain Time Notified: 10:07 Call Completed: Yes 03/06/19 12:43 Consult to Interpret Exam [CONS] Routine Consulting Provider: Jagjit Moore Consult to Interpret Exam: Interpret EEG - Constitutional Vitals: Temp Pulse Resp BP Pulse Ox 98.4 F 79 16 118/57 95 03/06/19 15:06 03/06/19 15:06 03/06/19 15:06 03/06/19 15:06 03/06/19 15:06 General appearance: Present: A&O X 3, no acute distress, answers questions appropriately Exam: Gen: Alert, awake, Oriented to time,place and person Chest: Diminished breath sounds B/L, No wheezing, No crackles, No rales Heart: S1S2+ RRR No murmurs Abd: Soft, NT, BS +, No organomegaly Ext: No edema, pulses are palpable, No calf tenderness, mild tenderness in left ankle with limited ROM Neuro : Benign findings Skin: No rash. - Patient Status Disposition: Home, Self-Care Condition: Good Overall status at discharge: patient is back to baseline - Discharge Instructions Follow Up With: Nae Garcia MD [Primary Care Provider] - Mark Harvey, KAYLIM [Partnered Physician] - - Diet and Activity Activity: increase activity as tolerated Diet: low salt diet
[2019-03-06] MEDS ORDERED: cefTRIAXone 1,000 MG in Water for inj. (sterile) 20 ML 10 ML IVP SCH (16:00)
--- NOTE | 2019-03-06 17:08 | EEG/EMG/Oth Biometrics Report ---
EEG Procedure Report Date of procedure: 03/06/19 EEG Procedure: Routine EEG Procedure Note: This is a report of a 21 channel bipolar and referential montage EEG. A posterior dominant rhythm of 8-10 Hz moderate voltage alpha frequency is identified symmetrically in the posterior head regions. This rhythm attenuates symmetrically with eye opening. Hyperventilation is not performed during the recording. Periods of drowsiness and stage II sleep are identified as referenced by dropout of posterior dominant rhythm and emergence of vertex activity K complexes and sleep spindles. Photic stimulation is performed and does not produce a driving response. The EKG rhythm strip reveals normal sinus rhythm at 72 bpm. Impressions: This EEG recording is within normal limits. There is no evidence of epileptiform activity identified during the recording. Comment: A normal EEG does not preclude a diagnosis of seizure or epilepsy. If the clinical suspicion for seizure activity is high, serial EEGs or perhaps a prolonged recording may increase the yield. Please correlate clinically.
--- NOTE | 2019-03-06 23:01 | Electrocardiograph Report ---
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
== END 2019-03-06 18:43 | disposition home or self-care (01) ==
LOC: 3BNU 09:57 → EMEROOARM 09:57 → SUATTDRO 13:39 → 3BNU 14:20
PROVIDERS: ADMIT Internal Medicine Nephrology; ATTEND Family Medicine